=== PATIENT | female | born 1985 | race American Indian/Alaskan Native ===

== ENCOUNTER 2019-02-05 14:35 | Outpatient (CLI) | payer BC | END 2019-02-05 14:36 | disposition home or self-care (01) | LOC: LAB 14:35 | PROVIDERS: ATTEND Nurse Practitioner Women's Health | DX: Z34.03 Encounter for supervision of normal first pregnancy, third trimester (principal); Z3A.35 35 weeks gestation of pregnancy | CPT/HCPCS: 36415; 86592; 87806 ==

== ENCOUNTER 2019-02-25 16:04 | Outpatient (CLI) | payer BC | END 2019-02-25 16:05 | disposition home or self-care (01) | LOC: LAB 16:04 | PROVIDERS: ATTEND Advanced Practice Midwife | DX: Z34.03 Encounter for supervision of normal first pregnancy, third trimester (principal); Z3A.38 38 weeks gestation of pregnancy | CPT/HCPCS: 36415; 85049 ==

== ENCOUNTER 2019-03-13 16:21 | Inpatient (IN) | payer BC ==
[2019-03-13] MEDS ORDERED: AMPICILLIN/NS 2 GM/100 ML 2 GM/100 ML BAG IV ONE (17:11)
[2019-03-13] MEDS ORDERED: SUBLIMAZE IV PRN (17:11)
[2019-03-13] MEDS ORDERED: XYLOCAINE 2% INFILTRATI ONE (17:11)
[2019-03-13] MEDS ORDERED: BRETHINE SUB-Q PRN (17:11)
[2019-03-13] MEDS ORDERED: ZOFRAN IV PRN (17:11)
[2019-03-13] MEDS ORDERED: MINERAL OIL PO PRN (17:11)
--- NOTE | 2019-03-13 17:21 | History and Physical Report ---
History of Present Illness Date of examination: 03/13/19 (pt presents to Triage 7cm dilated) History of present illness: EDC Confirmation: 03/07/2019 Gestational Age: 21 weeks Past History : 1 Term Births: 0 Premature Births: 0 Living Children: 0 Para: 0 Mult. Births: 0 Prev : 0 Prev. attempt? none Aborta: 0 Elect. Ab: 0 Spont. Ab: 0 Ectopics: 0 Past Medical History: eczema hx of chlamydia prior to , treated Past Surgical History: Negative Past Surgical History Past Medical History Surgery (Non-director of marketing google performance ads): Negative Past Surgical History Abnormal PAP: negative LUÍS Exposure: negative Infertility: negative Uterine Anomaly: negative Uterine Surgery (not C/S): negative Other Gynecologic Problems: negative Family Hx: mgf- stroke, heart attack Social Hx: single. lives with FOC. works in [employer] at [employer] Infection History Hx of STD: chlamydia HIV Risk Eval: low risk Hepatitis B Risk Eval: low risk Personal hx. of genital herpes: yes Partner hx. of genital herpes: no Rash, Viral, or Febrile illness since last LMP? no Varicella/Chicken Pox Status: Previous Disease TB Risk: yes Infection History Comments: chlamydia prior to , treated hx of genital herpes, outbreak x1 in 2016 Genetic History Congenital Heart Defect: Mom: no Dad: no Staci Disease: Mom: no Dad: no Thalassemia Mom: no Dad: no Neural Tube Defect Mom: no Dad: no Down's Syndrome Mom: no Dad: no Jermaine-Sachs Mom: no Dad: no Sickle Cell Disease/Trait Mom: no Dad: no Hemophilia Mom: no Dad: no Muscular Dystrophy Mom: no Dad: no Cystic Fibrosis Mom: no Dad: no Priec Chorea Mom: no Dad: no Mental Retardation Mom: no Dad: no Fragile X Mom: no Dad: no Other Genetic/Chromosomal Disorder Mom: no Dad: no Child w/other defect Mom: no Dad: no Past History - Obstetrical History Expected Date of Delivery: 03/07/19 Actual Gestation: 40 Week(s) 6 Day(s) : 1 Para: 0 Hx # Term Pregnancies: 0 Number of Pregnancies: 0 Spontaneous Abortions: 0 Induced : 0 Number of Living Children: 0 Medications and Allergies Allergies Allergy/AdvReac Type Severity Reaction Status Date / Time No Known Allergies Allergy Unverified 02/05/19 14:36 Active Meds: Active Medications Ephedrine Sulfate (Ephedrine Sulfate) 10 mg IV Q2M PRN PRN Reason: Hypotension Fentanyl (Sublimaze) 100 mcg IV Q2H PRN PRN Reason: Labor Pain Oxytocin/Sodium Chloride (Pitocin/Ns 20 Unit/1000ml Drip) 20 units in 1,000 mls @ 125 mls/hr IV DIRECT JESSY Lactated Ringer's (Lactated Ringers) 1,000 mls @ 125 mls/hr IV DIRECT JESSY Ampicillin Sodium (Ampicillin/Ns 1 Gm/50 Ml) 1 gm in 50 mls @ 100 mls/hr IV Q4HR JESSY; Protocol Ampicillin Sodium (Ampicillin/Ns 2 Gm/100 Ml) 2 gm in 100 mls @ 100 mls/hr IV ONCE ONE; Protocol Stop: 03/13/19 18:10 Mineral Oil (Mineral Oil) 30 ml PO QHS PRN PRN Reason: Constipation Ondansetron HCl (Zofran) 4 mg IV Q8H PRN PRN Reason: Nausea And Vomiting Terbutaline Sulfate (Brethine) 0.25 mg SUB-Q ONCE PRN PRN Reason: Hyperstimulation/Hypertonicity - Vital Signs Vital signs: Vital Signs Pulse BP 89 141/63 03/13/19 16:34 03/13/19 16:34 Temp Pulse Resp BP Pulse Ox 89 141/63 03/13/19 16:34 03/13/19 16:34 - Physical Exam Breasts: Positive: deferred Cardiovascular: Regular rate, Normal S1, Normal S2 Lungs: Positive: Normal air movement Abdomen: Positive: normal appearance, soft, normal bowel sounds. Negative: distention, tenderness Genitourinary (Female): Positive: normal external genitalia Vulva: both: normal Vagina: Positive: normal moisture. Negative: discharge Cervix: Negative: lesion, discharge Uterus: Positive: normal size, normal contour Adnexa: both: normal Anus/Rectum: Positive: normal perianal skin, heme negative. Negative: rectal mass, hemorrhoids Extremities: Positive: normal Deep Tendon Reflex Grade: Normal +2 - Obstetrical FHR: category 1 Uterine Contraction Monitor Mode: External Cervical Dilatation: 8 (unable to note BOW) Cervical Effacement Percentage: 100 station: +1 Uterine Contraction Pattern: Regular Uterine Tone Measurement Phase: Resting Uterine Contraction Intensity: Moderate Results Result Diagrams: 03/13/19 17:24 All other labs normal. Current OB Labs Blood Type: B (08/19/2018) Rh Type: positive (08/19/2018) Rh Antibody Screen: negative (08/19/2018) Platelets: 167 (08/19/2018) RPR: nonreactive (08/19/2018) Hep B Surface Antigen: negative (08/19/2018) HIV: negative (08/19/2018) Assessment and Plan - Patient Problems (1) Group B Streptococcus carrier state affecting Onset Date: ~03/13/19 Current Visit: Yes Status: Acute Plan to address problem: 33yo @ 40 weeks in active labor GBS+ Orders in EMR Anticipate delivery.
[2019-03-13 17:39] LABS: Hemoglobin 11.8 gm/dl (10.1-14.3); Mean Corpuscular HGB Conc 33 % (30-34); Mean Corpuscular Volume 88 fl (79-97); Platelet Count 117 K/mm3 (140-440); Red Blood Count 4.07 M/mm3 (3.65-5.03); Red Cell Distribution Width 15.4 % (13.2-15.2)
[2019-03-13] MEDS ORDERED: LACTATED RINGERS 1,000 ML IV SCH (18:00)
[2019-03-13] MEDS ORDERED: PITOCin/NS 20 UNIT/1000ML DRIP 20 UNITS/1,000 ML BAG IV SCH (18:00)
[2019-03-13] MEDS ORDERED: NARCAN 2 MG/2 ML IV PRN (18:45)
--- NOTE | 2019-03-13 18:52 | Anesthesia Consultation ---
Anesthesia Consult and Med Hx Date of service: 03/13/19 - Airway Anesthetic Teeth Evaluation: Caps ROM Head & Neck: Adequate Mental/Hyoid Distance: Adequate Mallampati Class: Class II Intubation Access Assessment: Probably Good - Pulmonary Exam CTA: Yes - Cardiac Exam Cardiac Exam: RRR - Pre-Operative Health Status ASA Pre-Surgery Classification: ASA2 Proposed Anesthetic Plan: Epidural - Pulmonary Hx Smoking: No Hx Asthma: No Hx Respiratory Symptoms: No SOB: No COPD: No Home Oxygen Therapy: No Hx Pneumonia: No Hx Sleep Apnea: No - Cardiovascular System Hx Hypertension: No Hx Coronary Artery Disease: No Hx Heart Attack/AMI: No Hx Angina: No Hx Percutaneous Transluminal Coronary Angioplasty (PTCA): No Hx Cardia Arrhythmia: No Hx Pacemaker: No Hx Internal Defibrillator: No Hx Heart Murmur: No Hx Peripheral Vascular Disease: No - Central Nervous System Hx Neuromuscular Disorder: No Hx Seizures: No CVA: No Hx Back Pain: No Hx Psychiatric Problems: No - Gastrointestinal Hx Ulcer: No Hx Gastroesophageal Reflux Disease: Yes - Endocrine Hx Renal Disease: No Hx End Stage Renal Disease: No Hx Cirrhosis: No Hx Liver Disease: No Hx Insulin Dependent Diabetes: No Hx Non-Insulin Dependent Diabetes: No Hx Thyroid Disease: No Hx Hypothyroidism: No Hx Hyperthyroidism: No - Hematic Hx Anemia: No Hx Sickle Cell Disease: No - Other Systems Hx Alcohol Use: No Hx Substance Use: No Hx Cancer: No Hx Obesity: No
[2019-03-13] MEDS ORDERED: fentaNYL-BUPIV 2 MCG/ML-0.125% 200 MCG/100 ML BAG EPIDURAL SCH (19:00)
--- NOTE | 2019-03-13 20:02 | Procedure Note ---
OB Delivery Note - Delivery Date of Delivery: 03/13/19 Team Supervisor: CHANO ALVARADO Estimated blood loss: 300cc - Vaginal Delivery presentation: vertex Delivery position: OA Delivery induction: none Delivery monitor: external uterine, internal FHT Route of delivery: Delivery placenta: spontaneous Delivery cord: nuchal cord, 3 umbilical vessels Episiotomy: midline Delivery laceration: 2nd degree Delivery repair: vicryl Anesthesia: epidural Delivery comments: live born male over 2nd degree episiotomy. CAN X 1 delivered through. Baby floppy cord clamped and cut passed to NICU team @ warmer. Placenta and membrane del complete and intact, 3 vessel cord. Pit IVFs. Repair with 2-0 vicryl in usual fashion. 7/9, EBL 300, Wgt 7-10 Mom and baby remain LDR stable. - A at 1 minute: 7 at 5 minutes: 9 Infant Gender: Male (7-10)
[2019-03-13] MEDS ORDERED: AMPICILLIN/NS 1 GM/50 ML 1 GM/50 ML BAG IV SCH (21:12)
[2019-03-13] MEDS ORDERED: SODIUM CHLORIDE FLUSH SYRINGE 10 ML IV NR (21:24)
[2019-03-13] MEDS ORDERED: MILK OF MAGNESIA PO PRN (21:24)
[2019-03-13] MEDS ORDERED: BENADRYL PO PRN (21:24)
[2019-03-13] MEDS ORDERED: DULCOLAX PR PRN (21:24)
[2019-03-13] MEDS ORDERED: TUCKS PAD TP PRN (21:24)
[2019-03-13] MEDS ORDERED: LANSINOH TP PRN (21:24)
[2019-03-13] MEDS ORDERED: PHENERGAN PO PRN (21:24)
[2019-03-13] MEDS ORDERED: TYLENOL PO PRN (21:24)
[2019-03-13] MEDS: IBUPROFEN PO SCH (23:09)
[2019-03-13] MEDS: COLACE PO SCH (23:09)
[2019-03-14] MEDS: IBUPROFEN PO SCH ×5 (04:01→22:30)
[2019-03-14] MEDS ORDERED: M-M-R II VACCINE SUB-Q ONE (06:00)
[2019-03-14] MEDS ORDERED: BOOSTRIX IM ONE (06:00)
[2019-03-14 08:12] LABS: Hematocrit 32.5 % (30.3-42.9); Hemoglobin 10.9 gm/dl (10.1-14.3)
--- NOTE | 2019-03-14 08:28 | Discharge Summary ---
Providers - Providers Date of Admission: 03/13/19 19:48 Date of discharge: 03/14/19 (desires d/c home this evening if baby is cleared for d/c) Attending physician: DAVI FOWLER Primary care physician: DAVI FOWLER Hospitalization Reason for admission: Labor Condition: Good Pertinent studies: post del H&H 10.9/32.5 Procedures: Hospital course: uncomplicated and course Disposition: DC- TO HOME OR SELFCARE - Discharge Diagnoses (1) Spontaneous vaginal delivery Status: Acute Core Measure Documentation - Palliative Care Palliative Care/ Comfort Measures: Not Applicable - Core Measures Any of the following diagnoses?: none Exam - Constitutional Vitals: Temp Pulse Resp BP Pulse Ox 98.1 F 87 20 118/67 100 03/14/19 05:20 03/14/19 05:20 03/14/19 05:20 03/14/19 05:20 03/14/19 05:20 General appearance: Present: no acute distress, well-nourished - EENT Eyes: Present: PERRL ENT: hearing intact, clear oral mucosa - Neck Neck: Present: supple, normal ROM - Respiratory Respiratory effort: normal Respiratory: bilateral: CTA - Cardiovascular Heart Sounds: Present: S1 & S2. Absent: rub, click - Extremities Extremities: pulses symmetrical, No edema Peripheral Pulses: within normal limits - Abdominal General gastrointestinal: Present: soft, non-tender, non-distended, normal bowel sounds Female genitourinary: Present: normal - Integumentary Integumentary: Present: clear, warm, dry - Musculoskeletal Musculoskeletal: gait normal, strength equal bilaterally - Psychiatric Psychiatric: appropriate mood/affect, intact judgment & insight - Neurologic Neurologic: CNII-XII intact, moves all extremities - Additional findings Additional findings: Fundus firm, lochia scant, breast and bottle feeding, VSSAF Plan Activity: no restrictions Diet: regular Follow up with: DAVI FOWELR MD [Primary Care Provider] - 7 Days (Congratulations!!! Please call [phone] to schedule your son's circumcision in 1 week and your visit in 4 weeks. Bring EMLA cream to your son's visit and await further instructions. Call for any questions or concerns.) Prescriptions: Lidocain2.5%/Prilocai2.5% [Emla] 5 gm TP ONCE PRN #1 tube PRN Reason: Pain Ibuprofen [Motrin 800 MG tab] 800 mg PO Q8HR PRN #30 tablet PRN Reason: Pain
[2019-03-14] MEDS: COLACE PO SCH ×2 (10:01→22:30)
[2019-03-15] MEDS: IBUPROFEN PO SCH ×3 (06:47→12:45)
[2019-03-15] MEDS: COLACE PO SCH (09:32)
[2019-03-15 16:36] VITALS: BP 102/64
== END 2019-03-15 18:25 | disposition home or self-care (01) | DRG 807 ==
LOC: EEVIPCON 16:21 → TRG 16:21 → LD 16:53 → TRG 19:46 → LD 19:48 → OB 21:09
PROVIDERS: ADMIT Obstetrics & Gynecology; ATTEND Obstetrics & Gynecology
PROC: 10E0XZZ Delivery of Products of Conception, External Approach (ICD-10-PCS; principal; 2019-03-13)
PROC: 0KQM0ZZ Repair Perineum Muscle, Open Approach (ICD-10-PCS; 2019-03-13)
PROC: 0W8NXZZ Division of Female Perineum, External Approach (ICD-10-PCS; 2019-03-13)
PROC: 3E0R3BZ Introduction of Anesthetic Agent into Spinal Canal, Percutaneous Approach (ICD-10-PCS; 2019-03-13)
PROC: 00HU33Z Insertion of Infusion Device into Spinal Canal, Percutaneous Approach (ICD-10-PCS; 2019-03-13)
PROC: 3E0234Z Introduction of Serum, Toxoid and Vaccine into Muscle, Percutaneous Approach (ICD-10-PCS; 2019-03-14)
DX: O99.62 Diseases of the digestive system complicating childbirth (principal); Z37.0 Single live birth; K21.9 Gastro-esophageal reflux disease without esophagitis; O99.824 Streptococcus B carrier state complicating childbirth; O69.81X0 Labor and delivery complicated by cord around neck, without compression, not applicable or unspecified; O70.1 Second degree perineal laceration during delivery; Z3A.40 40 weeks gestation of pregnancy; Z82.49 Family history of ischemic heart disease and other diseases of the circulatory system; Z83.3 Family history of diabetes mellitus; Z23 Encounter for immunization
CPT/HCPCS: 36415; 85014; 85018; 85027; 86592; 86850; 86900; 86901; G0378; J0290; J2405; J2590; J3010; J7120

== ENCOUNTER 2019-04-10 15:39 | Outpatient (CLI) | payer BC ==
[2019-04-10 16:29] LABS: Free T4 (Free Thyroxine) 1.01 ng/dL (0.76-1.46)
== END 2019-04-10 15:40 | disposition home or self-care (01) ==
LOC: LAB 15:39
PROVIDERS: ATTEND Advanced Practice Midwife
DX: Z39.2 Encounter for routine postpartum follow-up (principal); R68.89 Other general symptoms and signs; K21.9 Gastro-esophageal reflux disease without esophagitis
CPT/HCPCS: 36415; 83036; 84439; 84443

== ENCOUNTER 2020-10-18 15:18 | Outpatient (CLI) | payer BC | END 2020-10-18 15:19 | disposition home or self-care (01) | LOC: LAB 15:18 | PROVIDERS: ATTEND Nurse Practitioner Women's Health | DX: Z34.83 Encounter for supervision of other normal pregnancy, third trimester (principal); Z3A.00 Weeks of gestation of pregnancy not specified | CPT/HCPCS: 36415; 86592; 86689 ==

== ENCOUNTER 2020-11-08 02:12 | Inpatient (IN) | payer BC ==
[2020-11-08] MEDS ORDERED: OXYTOCIN 10 UNIT/1 ML INJ ONE (02:23)
[2020-11-08] MEDS ORDERED: OXYTOCIN 10 UNIT/1 ML INJ IM ONE (02:25)
--- NOTE | 2020-11-08 02:48 | Procedure Note ---
OB Delivery Note - Delivery Date of Delivery: 11/08/20 Surgeon: GERMAINE THOMSON Estimated blood loss: other (250 cc) - Vaginal Delivery presentation: vertex Delivery position: OA Intrapartum events: precipitous labor- <3hr Delivery induction: none Route of delivery: Delivery placenta: spontaneous Delivery cord: nuchal cord, 3 umbilical vessels Episiotomy: none Delivery laceration: none Anesthesia: none Delivery comments: Stood in for delivery as patient's provider was not in-house and head was as patient presented to L&D. Precipitous spontaneous vaginal delivery at 02:17 of liveborn female infant weighing 3.317 kg over intact perineum with apgars of 8/9. was atraumatic. Nuchal cord times 1, manually reduced. Baby placed skin to skin with mom immediately after delivery. Spontaneous cry and respirations. Baby suctioned with bulb syringe and dried with warm blankets. 3 vessel cord double clamped and cut; cord blood obtained. Spontaneous delivery of intact placenta and membranes by atkinson mechanism at 02:23. EBL 250 cc. IM Pitocin given as patient did not have IV at time of delivery. Fundus massaged and was found to be firm and midline. No lacerations noted. Vaginal sweep negative. Sponge count correct. Mother and baby stable.
[2020-11-08] MEDS ORDERED: MAGNESIUM HYDROXIDE (MOM) ORAL LIQD UDC PO PRN (02:57)
[2020-11-08] MEDS ORDERED: diphenhydrAMINE 25 MG CAP PO PRN (02:57)
[2020-11-08] MEDS ORDERED: PROMETHAZINE 25 MG TAB PO PRN (02:57)
[2020-11-08] MEDS ORDERED: WITCH HAZEL/ GLYCERIN PAD TP PRN (02:57)
[2020-11-08] MEDS ORDERED: LANOLIN/ZINC/DIMETHICONE (LANSINOH) 7 GM TP PRN (02:57)
[2020-11-08] MEDS ORDERED: ONDANSETRON 4 MG/2 ML INJ IV PRN (02:57)
[2020-11-08] MEDS ORDERED: BENZOCAINE/MENTHOL 20/0.5% TOP SPRAY 56 GM TP PRN (02:57)
[2020-11-08] MEDS ORDERED: OXYTOCIN DRIP 30 UNITS/500 ML BAG IV SCH (03:00)
--- NOTE | 2020-11-08 03:03 | History and Physical Report ---
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 lives with FOC. works in [employer] at [facility] Infection History Hx of STD: chlamydia HIV Risk Eval: low risk Hepatitis B Risk Eval: low risk Personal hx. of genital herpes: yes Partner hx. of genital herpes: no Rash, Viral, or Febrile illness since last LMP? no Varicella/Chicken Pox Status: Previous Disease Genetic History ADVANCED MATERNAL AGE Congenital Heart Defect: Mom: no Dad: no Staci Disease: Mom: no Dad: no Thalassemia Mom: no Dad: no Neural Tube Defect Mom: no Dad: no Down's Syndrome Mom: no Dad: no Jermaine-Sachs Mom: no Dad: no Sickle Cell Disease/Trait Mom: no Dad: no Hemophilia Mom: no Dad: no Muscular Dystrophy Mom: no Dad: no Cystic Fibrosis Mom: no Dad: no Price Chorea Mom: no Dad: no Mental Retardation Mom: no Dad: no Fragile X Mom: no Dad: no Other Genetic/Chromosomal Disorder Mom: no Dad: no Child w/other defect Mom: no Dad: no Enviromental Exposures Xray Exposure: yes Medication, drug, or alcohol use since LMP: no Chemical/Other Exposure: no Exposure to Cat Liter: no Hx of Parvovirus (Fifth Disease): no Occupational Exposure to Children: none Comments: occupational xray exposure Active Medications (reviewed today): VALACYCLOVIR HCL 1 GM ORAL TABLET (VALACYCLOVIR HCL) Current Allergies (reviewed today): No known allergies Past History Past Medical History: other (see HPI) Past Surgical History: other (see HPI) RHINOLOGIST History: other (see HPI) Family/Genetic History: other (see HPI) - Obstetrical History Expected Date of Delivery: 11/07/20 Actual Gestation: 40 Week(s) 1 Day(s) : 2 Para: 1 Hx # Term Pregnancies: 1 Number of Pregnancies: 0 Spontaneous Abortions: 0 Induced : 0 Number of Living Children: 1 Medications and Allergies Allergies Allergy/AdvReac Type Severity Reaction Status Date / Time No Known Allergies Allergy Unverified 02/05/19 14:36 Home Medications Medication Instructions Recorded Confirmed Last Taken Type Ibuprofen [Motrin 800 MG tab] 800 mg PO Q8HR PRN #30 tablet 03/14/19 Unknown Rx Lidocain2.5%/Prilocai2.5% [Emla] 5 gm TP ONCE PRN #1 tube 03/14/19 Unknown Rx Review of Systems All systems: negative - Vital Signs Vital signs: Vital Signs Pulse Pulse Ox 69 98 11/08/20 02:24 11/08/20 02:24 Temp Pulse Resp BP Pulse Ox 98.3 F 71 121/68 100 11/08/20 02:30 11/08/20 02:59 11/08/20 02:46 11/08/20 02:59 - Physical Exam Breasts: Positive: normal Cardiovascular: Regular rate Lungs: Positive: Clear to auscultation, Normal air movement Abdomen: Positive: normal appearance, soft Genitourinary (Female): Positive: normal external genitalia, normal perenium Vulva: both: normal Uterus: Positive: normal size Extremities: Positive: normal - Obstetrical Cervical Dilatation: 10 Cervical Effacement Percentage: 100 station: +4 Results All other labs normal. Assessment and Plan pt presented to [facility] and delivered on stretcher within minutes of arriving. Maxwell Noguera CNM present on unit and assisted with delivery. - Patient Problems (1) 40 weeks gestation of Current Visit: No Status: Acute (2) Active labor Current Visit: No Status: Acute (3) Group B Streptococcus carrier state affecting Onset Date: ~03/13/19 Current Visit: No Status: Acute
[2020-11-08 03:31] LABS: Hematocrit 36.6 % (30.3-42.9); Mean Corpuscular HGB Conc 33 % (30-34); Mean Corpuscular Volume 91 fl (79-97); Platelet Count 110 K/mm3 (140-440); Red Blood Count 4.04 M/mm3 (3.65-5.03); Red Cell Distribution Width 14.6 % (13.2-15.2)
[2020-11-08] MEDS: IBUPROFEN 800 MG TAB PO SCH ×2 (06:23→20:23)
[2020-11-08 15:21] LABS: Hematocrit 33.4 % (30.3-42.9); Hemoglobin 10.9 gm/dl (10.1-14.3)
[2020-11-08] MEDS: PRENATAL VIT27-FE FUMARATE-FOLIC ACID VIT TAB PO SCH (17:53)
--- NOTE | 2020-11-08 19:41 | Progress Note ---
Assessment and Plan A: 34 y.o. s/p @ term @ 0242 this AM. P: Anticipate discharge home on 11/09. Subjective - Subjective Date of service: 11/08/20 (Pt doing well) Principal diagnosis: s/p @ term Patient reports: appetite normal, voiding normally, pain well controlled, flatus, ambulating normally [place]: doing well Objective - Vital Signs Latest vital signs: Vital Signs Temp Pulse Resp BP BP BP Pulse Ox 11/08/20 16:19 98.3 F 89 18 98/47 94 11/08/20 12:15 97.7 F 80 18 97/58 98 11/08/20 05:55 98.2 F 74 18 116/61 97 11/08/20 05:24 78 97 11/08/20 05:19 84 98 11/08/20 05:16 80 104/61 11/08/20 05:14 76 97 11/08/20 05:09 86 97 11/08/20 05:04 84 97 11/08/20 05:01 103/65 11/08/20 04:59 81 98 11/08/20 04:54 77 98 11/08/20 04:49 65 98 11/08/20 04:46 58 L 102/56 11/08/20 04:44 59 L 98 11/08/20 04:39 67 98 11/08/20 04:34 61 99 11/08/20 04:31 72 98/50 11/08/20 04:29 68 98 11/08/20 04:24 65 98 11/08/20 04:19 66 99 11/08/20 04:16 60 117/57 11/08/20 04:14 63 99 11/08/20 04:09 70 98 11/08/20 04:04 79 98 11/08/20 04:01 74 114/63 11/08/20 03:59 86 99 11/08/20 03:54 80 98 11/08/20 03:49 64 99 11/08/20 03:46 71 118/63 11/08/20 03:44 73 99 11/08/20 03:39 75 100 11/08/20 03:35 81 91 11/08/20 03:34 72 98 11/08/20 03:31 73 126/66 11/08/20 03:29 75 98 11/08/20 03:24 68 99 11/08/20 03:19 72 99 11/08/20 03:16 76 136/85 11/08/20 03:14 76 99 11/08/20 03:09 67 100 11/08/20 03:04 66 100 11/08/20 03:01 66 130/73 11/08/20 02:59 71 100 11/08/20 02:54 78 99 11/08/20 02:49 68 100 11/08/20 02:46 65 121/68 11/08/20 02:44 67 100 11/08/20 02:39 66 100 11/08/20 02:34 69 100 11/08/20 02:31 83 117/62 11/08/20 02:30 98.3 F 70 117/62 11/08/20 02:29 81 100 11/08/20 02:24 69 98 Intake and Output 11/08/20 11/08/20 11/08/20 06:59 14:59 22:59 Intake Total 240 Output Total 600 600 800 Balance -360 -600 -800 Intake: Oral 240 Output: Urine 600 600 800 Void 600 600 800 Other: Total, Intake Amount 240 Total, Output Amount 600 600 800 # Voids Void 1 1 Weight 186 lb Estimated Blood Loss 250 - Exam Narrative Exam: VSS. Adequate I&O's. H/H 10.9/33.0. Breasts: Present: deferred Cardiovascular: Present: Regular rate Lungs: Present: Normal air movement Abdomen: Present: normal appearance, soft Uterus: Present: normal, firm Extremities: Present: normal - Labs Labs: Abnormal lab results 11/08/20 Range/Units 03:00 Plt Count 110 L (140-440) K/mm3
[2020-11-09] MEDS: IBUPROFEN 800 MG TAB PO SCH ×3 (00:20→15:54)
--- NOTE | 2020-11-09 06:24 | Discharge Summary ---
Providers - Providers Date of Admission: 11/08/20 02:17 Date of discharge: 11/09/20 (Pt agrees with d/c) Attending physician: ESSENCE GUERRA Primary care physician: ESSENCE GUERRA Hospitalization Reason for admission: active labor, IUP at term Delivery: Episiotomy: none Laceration: none Incision: normal Other procedures: none complications: none Discharge diagnosis: IUP at term delivered [place] baby: female Hospital course: precipitous delivery uncomplicated Pt awake caring for NB No c/o voiced VSS H&H Doing well s/p vaginal delivery P: d/c today with instructions RTO 4 weeks Condition at discharge: Good Disposition: DC-01 TO HOME OR SELFCARE - Discharge Diagnoses (1) Spontaneous vaginal delivery Status: Acute Comment: RTO in 4 weeks for PP care Plan - Provider Discharge Summary Activity: routine, no sex for 6 weeks, no heavy lifting 4 weeks, no strenuous exercise Diet: routine Instructions: routine Additional instructions: [] Smoking cessation referral if applicable(refer to patient education folder for contact #) [] Refer to [facility]'s [facility] Booklet Call your doctor immediately for: * Fever > 100.5 * Heavy vaginal bleeding ( >1 pad per hour) * Severe persistent headache * Shortness of breath * Reddened, hot, painful area to leg or breast * Drainage or odor from incision. * Keep incision clean and dry at all times and follow doctor's instructions regarding bathing/showering - Follow up plan Follow up: ESSENCE GUERRA MD [Primary Care Provider] - 12/06/20 (Congratulations! Please call [phone] to schedule your visit in 4 weeks. M otrin/ibuprofen for pain/cramping. Call with concerns.)
[2020-11-09] MEDS: PRENATAL VIT27-FE FUMARATE-FOLIC ACID VIT TAB PO SCH (10:20)
[2020-11-09 16:25] VITALS: BP 118/68
== END 2020-11-09 17:19 | disposition home or self-care (01) | DRG 807 ==
LOC: TRG 02:12 → LD 02:17 → OB 05:55
PROVIDERS: ADMIT Obstetrics & Gynecology; ATTEND Obstetrics & Gynecology
PROC: 10E0XZZ Delivery of Products of Conception, External Approach (ICD-10-PCS; principal; 2020-11-08)
DX: O62.3 Precipitate labor (principal); Z37.0 Single live birth; O99.820 Streptococcus B carrier state complicating pregnancy; Z3A.40 40 weeks gestation of pregnancy; Z20.822 Contact with and (suspected) exposure to COVID-19
CPT/HCPCS: 36415; 85014; 85018; 85027; 86592; 86850; 86900; 86901; 87806; G0378; J2590; U0003

== ENCOUNTER 2021-02-13 16:46 | Emergency (ER) | payer BC ==
[2021-02-13 17:24] VITALS: BP 106/48
--- NOTE | 2021-02-13 18:58 | Emergency Department Report ---
ED General Adult HPI - General Chief complaint: Wound/Laceration Stated complaint: RT HAND FINGER LAC Time Seen by Provider: 02/13/21 18:43 Source: patient Mode of arrival: Ambulatory Limitations: No Limitations - History of Present Illness Initial comments: 35-year-old [id number] female patient presents emergency department with complaints of a superficial laceration to her right fifth finger occurring approximately 2 hours ago. Bleeding is controlled. Tetanus is up-to-date. Denies shoulder pain, elbow pain, arm pain, wrist pain, paresthesias, numbness. Denies other complaints at this time. - Related Data Previous Rx's Medication Instructions Recorded Last Taken Type Ibuprofen [Motrin 800 MG tab] 800 mg PO Q8HR PRN #30 tablet 03/14/19 11/08/20 10:31 Rx Lidocain2.5%/Prilocai2.5% [Emla] 5 gm TP ONCE PRN #1 tube 03/14/19 Unknown Rx Allergies Allergy/AdvReac Type Severity Reaction Status Date / Time No Known Allergies Allergy Verified 02/13/21 17:24 ED Review of Systems ROS: Stated complaint: RT HAND FINGER LAC Other details as noted in HPI Other: GENERAL: Negative for fever. CARDIOVASCULAR: Negative for chest pain. PULMONARY: Negative for shortness of breath. GASTROINTESTINAL: Negative for abdominal pain. MUSCULOSKELETAL: Negative for back pain. NEUROLOGICAL: Negative for headache. INTEGUMENTARY: Positive for laceration. ED Past Medical Hx - Past Medical History Hx Hypertension: No Hx Heart Attack/AMI: No Hx Congestive Heart Failure: No Hx Diabetes: No Hx Deep Vein Thrombosis: No Hx Liver Disease: No Hx Renal Disease: No Hx Sickle Cell Disease: No Hx Seizures: No Hx Asthma: No Hx COPD: No Hx HIV: No - Surgical History Hx Pacemaker: No Hx Internal Defibrillator: No - Social History Smoking Status: Never Smoker Substance Use Type: None - Medications Home Medications: Home Medications Medication Instructions Recorded Confirmed Last Taken Type Ibuprofen [Motrin 800 MG tab] 800 mg PO Q8HR PRN #30 tablet 03/14/19 11/08/20 11/08/20 10:31 Rx Lidocain2.5%/Prilocai2.5% [Emla] 5 gm TP ONCE PRN #1 tube 03/14/19 11/08/20 Unknown Rx ED Physical Exam - General Limitations: No Limitations - Other Other exam information: General: Awake, appropriately interactive, no acute distress. Neck: Supple. Full range of motion intact. Cardiovascular: Normal peripheral perfusion. Pulmonary: No respiratory distress. Patient is speaking normally without use of accessory muscles. Skin: Superficial laceration to the volar aspect of the right fifth digit, approximately 1 cm. Bleeding is controlled. Wound is not grossly contaminated. Wound edges are well approximated. Distal neurovascular and motor/sensory function intact. Neurological: No facial asymmetry. Speech is clear. Follows commands. Patient is alert and oriented. Musculoskeletal: Moves all four extremities spontaneously with normal range of motion. Psych: Cooperative. Appropriate mood and affect. ED Course Vital Signs 02/13/21 02/13/21 17:22 19:18 Temperature 98.2 F Pulse Rate 78 Respiratory 18 16 Rate Blood Pressure 106/48 O2 Sat by Pulse 97 98 Oximetry - Procedure Description Procedures done: Verbal consent was obtained from the patient. The area was cleansed with saline and Betadine. Topical skin adhesive was applied to the volar aspect of the right fifth finger. Dressing applied. Patient tolerated procedure well without complications. ED Medical Decision Making - Medical Decision Making Differential diagnosis including but not limited to: laceration, abrasion, retained foreign body Patient presents emergency department with complaints of superficial laceration to the right fifth finger. Tetanus is up-to-date. Good hemostasis. No neurovascular deficits. Topical skin adhesive applied. See procedure note for details. Patient will be discharged home to follow-up with her primary care provider this week. Patient expressed understanding and is agreeable to plan of care. Wound care precautions discussed. Strict return precautions provided. Repeat exam is unremarkable and benign. History, exam, diagnostic testing, and current condition do not suggest worrisome pathology to warrant further testing, continued ED treatment, admission, or surgical evaluation at this point. Given the low probability of a significant medical illness, it would be more likely to result in harm than benefit to perform further testing at this stage. Discussed findings, presumptive diagnosis, need for follow-up and specific signs/symptoms that should prompt immediate return to the emergency department. Instructions were explained in detail to the patient in addition to giving written discharge information. Patient expressed understanding and was given the opportunity to ask questions, all of which were satisfactorily answered prior to discharge home. Critical care attestation.: If time is entered above; I have spent that time in minutes in the direct care of this critically ill patient, excluding procedure time. ED Disposition Clinical Impression: Laceration of finger Qualifiers: Encounter type: initial encounter Finger: little finger Damage to nail status: without damage Foreign body presence: without foreign body Laterality: right Qualified Code(s): S61.216A - Laceration without foreign body of right little finger without damage to nail, initial encounter Disposition: TO HOME OR SELFCARE Is pt being admited?: No Does the pt Need Aspirin: No Condition: Stable Instructions: Nonsutured Laceration Care Additional Instructions: Take Tylenol every 4 hours as needed for pain. Keep wound clean and covered. Change dressing daily. Apply antibiotic ointment to affected area 3 times daily. Topical adhesive will dissolve on its own. Follow-up with your primary care provider this week. Call Sunday to schedule an appointment. Return to the emergency department immediately for new or worsening symptoms. Referrals: JEY PUGA MD [Staff Physician] - 3-5 Days Time of Disposition: 18:58
== END 2021-02-13 19:18 | disposition home or self-care (01) ==
LOC: ED 16:46
DX: S61.216A Laceration without foreign body of right little finger without damage to nail, initial encounter (principal); W26.8XXA Contact with other sharp object(s), not elsewhere classified, initial encounter; Y93.89 Activity, other specified; Y92.89 Other specified places as the place of occurrence of the external cause; Y99.8 Other external cause status
CPT/HCPCS: 99282